=== PATIENT | male | born 1935 | race Caucasian/White ===

== ENCOUNTER 2016-08-17 11:12 | Inpatient (IN) | payer MEDICARE, MEDICAID ==
[~2016-08-17] VITALS: Ht 162.6 cm; Wt 74.9 kg
[~2016-08-17 11:12] MED LIST: ACULAR; TERAZOSIN HCL; [UNRECOGNIZED DRUG - OTHER]; [UNRECOGNIZED DRUG - SUPPLY]; aspirin; carvedilol; enalapril; famotidine; hyzaar; levemir; lisinopril; nitroglycerin; novolog insulin; plavix; simvastatin
[2016-08-17] MEDS ORDERED: ADENOSINE 6 ML ONE (11:28)
[2016-08-17] MEDS ORDERED: ADENOSINE 6 MG INJ IV ONE (11:30)
[2016-08-17 11:35] LABS: ADD SCAN DIFF NO
[2016-08-17 11:43] LABS: BASOPHIL # 0.1 10^3/ul (0.0-0.1); BASOPHILS % 0.6 % (0.0-2.0); EOSINOPHILS # 0.1 10^3/ul (0.0-0.5); EOSINOPHILS % 1.4 % (0.0-7.0); HEMATOCRIT 39.5 % (42.0-52.0); LYMPHOCYTES % 22.8 % (15.0-51.0); MEAN CORPUSCULAR HEMOGLOBIN 30.4 pg (29.0-33.0); MEAN CORPUSCULAR HGB CONC 32.9 g/dl (32.0-37.0); MEAN CORPUSCULAR VOLUME 92.3 fl (82.0-101.0); MEAN PLATELET VOLUME 12.2 fl (7.4-10.4); MONOCYTE # 0.7 10^3/ul (0.3-0.9); MONOCYTES % 7.7 % (0.0-11.0); NEUTROPHIL # 5.8 10^3/ul (1.6-7.5); NEUTROPHILS % 67.3 % (39.0-77.0); PLATELET COUNT 219 10^3/UL (140-415); RED BLOOD COUNT 4.28 10^6/ul (4.70-6.10); RED CELL DISTRIBUTION WIDTH 12.7 % (11.5-14.5); WHITE BLOOD COUNT 8.6 10^3/ul (4.8-10.8)
[2016-08-17 11:46] LABS: POTASSIUM 3.2 mmol/L (3.5-5.1)
[2016-08-17 11:47] LABS: INR 1.03; PROTIME 13.5 Sec (12.2-14.2); PT RATIO 1.1
[2016-08-17 11:48] LABS: PARTIAL THROMBOPLASTIN TIME 25.9 Sec (25.0-35.0)
[2016-08-17 11:49] LABS: CREATININE 1.06 mg/dl (0.61-1.24)
[2016-08-17 11:50] LABS: CALCIUM 8.1 mg/dl (8.4-10.2); MAGNESIUM 1.9 mg/dl (1.7-2.5)
[2016-08-17 12:01] LABS: TROPONIN-I 0.025 ng/ml (0.00-0.12)
[2016-08-17 12:28] LABS: THYROID STIMULATING HORMONE 2.22 MIU/L (0.465-4.680)
--- NOTE | 2016-08-17 12:28 | RADRPT ---
PROCEDURE: XR Chest 1 view. CLINICAL INDICATION: Chest pain TECHNIQUE: AP views of the chest were obtained. COMPARISON: June 09, 2009 FINDINGS: The heart is large. Calcified atherosclerosis is noted in the aorta. Left-sided dual chamber, biven tricular pacemaker/defibrillator has its leads over the heart and appears stable. The lungs are hyp oinflated. Atelectasis is noted at the right lung base. Atelectasis versus mild infiltrates are se en in the retrocardiac left lower lobe. No pneumothorax as visualized. Osseous structures are inta ct. IMPRESSION: Cardiomegaly with calcified atherosclerosis in the aorta. Hypoinflated lungs. Atelectasis versus mild infiltrates in the retrocardiac left lower lobe. Atelectasis at the right lung base. RPTAT: AA .London Riley MD, Date Time Electronically viewed and signed by .London Riley MD, on 08/17/2016 12:28 .P/
[2016-08-17] MEDS ORDERED: ACETAMINOPHEN 325 MG TAB PO PRN (12:30)
[2016-08-17] MEDS ORDERED: ONDANSETRON 4 MG INJ IV PRN (12:30)
[2016-08-17] MEDS ORDERED: OLOP2.5D5 BOTH EYES (13:31)
[2016-08-17] MEDS ORDERED: FURO40TA4 PO (13:32)
[2016-08-17] MEDS ORDERED: CARV25TA79 PO (13:32)
[2016-08-17] MEDS ORDERED: CLOP75TA27 PO (13:32)
[2016-08-17] MEDS ORDERED: LOSA1TAB19 PO (13:32)
[2016-08-17] MEDS ORDERED: SIMV40TA2 PO (13:33)
[2016-08-17] MEDS ORDERED: POTA8CAP PO (13:33)
[2016-08-17] MEDS ORDERED: FAMO20TA18 PO (13:33)
[2016-08-17] MEDS ORDERED: ERGO500037 PO (13:34)
[2016-08-17] MEDS ORDERED: MONT10TA24 PO (13:34)
[2016-08-17] MEDS ORDERED: TERA5CAP3 PO (13:34)
[2016-08-17] MEDS ORDERED: INSU100C SQ (13:35)
[2016-08-17] MEDS ORDERED: FER325 PO (13:35)
[2016-08-17] MEDS ORDERED: VILA10TA PO (13:35)
[2016-08-17] MEDS ORDERED: FOLI-49 PO (13:36)
[2016-08-17] MEDS ORDERED: CYAN500T46 PO (13:36)
[2016-08-17] MEDS ORDERED: LANT3I SC (13:36)
[2016-08-17] MEDS ORDERED: MEMA5TAB PO (13:37)
[2016-08-17] MEDS ORDERED: DONE5TAB7 PO (13:37)
--- NOTE | 2016-08-17 14:36 | ERA ---
ER Documentation Chief Complaint Date/Time DATE: 08/17/16 TIME: 14:30 Chief Complaint CHEST PAIN SINCE THIS AM SENT BY MD ALVAREZ Patient is a 80-year-old male with coronary disease, hypertension, and diabetes who presents with chest pain and shortness of breath. He had chest pressure, shortness of breath, and dizziness which started at 7 AM. He said that he has not taken his medications for the past 20 days because he ran out. He went to his primary doctor's office today Dr. Peña who sent him to the emergency department for further workup and admission. He does have a pacemaker. He has had no treatment as of yet. His symptoms are constant. ROS All systems reviewed and are negative except as per history of present illness. Medications Home Meds Reported Medications Donepezil* (Donepezil*) 5 Mg Tablet, 5 MG PO DAILY, #30 TAB 08/17/16 Memantine* (Namenda*) 5 Mg Tablet, 5 MG PO DAILY, #30 TAB 08/17/16 Cyanocobalamin* (Vitamin B12*) 500 Mcg Tab, 500 MCG PO DAILY, TAB 08/17/16 Folic Acid* (Folic Acid*) 1 Mg Tablet, 1 MG PO DAILY, TAB 08/17/16 Insulin Glargine* (Lantus*) 100 Unit/Ml Soln, 12 UNIT SC QHS, #1 VIAL 08/17/16 Insulin Lispro (Humalog) 100 Unit/1 Ml Cartridge, 4 UNIT SQ AC MEALS 08/17/16 Vilazodone Hcl (Viibryd) 10 Mg Tablet, 10 MG PO DAILY, TAB 08/17/16 Ferrous Sulfate* (Ferrous Sulfate*) 325 Mg Tabec, 325 MG PO BID, TAB 08/17/16 Ergocalciferol (Vitamin D2) (VITAMIN D2) 50,000 Unit Capsule, 95628 UNIT PO WEEKLY, CAP 08/17/16 Montelukast Sodium* (Montelukast Sodium*) 10 Mg Tablet, 10 MG PO QHS, #30 TAB 08/17/16 Terazosin Hcl* (Terazosin Hcl*) 5 Mg Capsule, 5 MG PO HS, CAP 08/17/16 Famotidine* (Famotidine*) 20 Mg Tablet, 20 MG PO DAILY, #30 TAB 08/17/16 Simvastatin* (Zocor*) 40 Mg Tablet, 40 MG PO QHS, #30 TAB 08/17/16 Potassium Chloride* (Potassium Chloride*) 8 Meq Capsule.er, 8 MEQ PO DAILY, CAP 08/17/16 Furosemide* (Furosemide*) 40 Mg Tablet, 40 MG PO DAILY, TAB 08/17/16 Clopidogrel Bisulfate (Clopidogrel) 75 Mg Tablet, 75 MG PO DAILY, #30 TAB 08/17/16 Losartan-Hydrochlorothiazide (Losartan-HCTZ) 50-12.5 Mg Tab, 1 TAB PO DAILY, TAB 08/17/16 Carvedilol* (Carvedilol*) 25 Mg Tablet, 25 MG PO BID, #60 TAB 08/17/16 Olopatadine HCl (Pazeo) 2.5 Ml Drops, 1 DROP BOTH EYES DAILY, BOTTLE 08/17/16 Discontinued Reported Medications [nitroglycerin] No Conflict Check 06/08/09 [simvastatin] No Conflict Check 06/08/09 [famotidine] No Conflict Check 06/08/09 [plavix] No Conflict Check 06/08/09 [acular] No Conflict Check 06/08/09 [contour] No Conflict Check 06/08/09 [novolog insulin] No Conflict Check 06/08/09 [levemir] No Conflict Check 06/08/09 [enalapril ] No Conflict Check 06/08/09 [hyzaar] No Conflict Check 06/08/09 [torpol ] No Conflict Check 06/08/09 [lisinopril] No Conflict Check 06/08/09 [aspirin] No Conflict Check 06/08/09 [carvedilol ] No Conflict Check 06/08/09 [Terazosin Hcl] 1 MG CAP No Conflict Check 06/08/09 Allergies Allergies: Coded Allergies: No Known Allergies (Verified Allergy, Mild, 06/08/09) PMhx/Soc History of Surgery: No Hx Neurological Disorder: No Hx Respiratory Disorders: Yes (copd) Hx Cardiac Disorders: Yes (pacemaker. hypertension. ) Hx Miscellaneous Medical Probl: No Hx Alcohol Use: Yes (moderate) Hx Substance Use: No Hx Tobacco Use: Yes (moderate) Smoking Status: Current every day smoker FmHx Family History: No diabetes Physical Exam Vitals Vital Signs Date Time Temp Pulse Resp B/P Pulse Ox O2 Delivery O2 Flow Rate FiO2 08/17/16 11:49 Nasal Cannula 2 08/17/16 11:16 98.0 171 18 85/53 97 Physical Exam Const: No acute distress Head: Atraumatic Eyes: Normal Conjunctiva ENT: Normal External Ears, Nose and Mouth. Neck: Full range of motion..~ No meningismus. Resp: Clear to auscultation bilaterally Cardio: Tachycardic rate without murmur Abd: Soft, non tender, non distended. Normal bowel sounds Skin: Pale Back: No midline or flank tenderness Ext: No cyanosis, or edema Neur: Awake and alert Psych: Normal Mood and Affect Result Diagram: 08/17/16 1112 08/17/16 1112 Results 24 hrs Laboratory Tests Test 08/17/16 11:12 White Blood Count 8.610^3/ul Red Blood Count 4.2810^6/ul Hemoglobin 13.0g/dl Hematocrit 39.5% Mean Corpuscular Volume 92.3fl Mean Corpuscular Hemoglobin 30.4pg Mean Corpuscular Hemoglobin Concent 32.9g/dl Red Cell Distribution Width 12.7% Platelet Count 83845^3/UL Mean Platelet Volume 12.2fl Neutrophils % 67.3% Lymphocytes % 22.8% Monocytes % 7.7% Eosinophils % 1.4% Basophils % 0.6% Nucleated Red Blood Cells % 0.0/100WBC Neutrophils # 5.810^3/ul Lymphocytes # 2.010^3/ul Monocytes # 0.710^3/ul Eosinophils # 0.110^3/ul Basophils # 0.110^3/ul Nucleated Red Blood Cells # 0.010^3/ul Prothrombin Time 13.5Sec Prothrombin Time Ratio 1.1 INR International Normalized Ratio 1.03 Activated Partial Thromboplast Time 25.9Sec Sodium Level 140mmol/L Potassium Level 3.2mmol/L Chloride Level 104mmol/L Carbon Dioxide Level 23mmol/L Anion Gap 16 Blood Urea Nitrogen 19mg/dl Creatinine 1.06mg/dl Glucose Level 204mg/dl Calcium Level 8.1mg/dl Magnesium Level 1.9mg/dl Troponin I 0.025ng/ml Thyroid Stimulating Hormone (TSH) 2.220MIU/L Free Thyroxine 1.27ng/dl Current Medications Medications (Trade) Dose Ordered Sig/Mayito Route PRN Reason Start Time Stop Time Status Last Admin Dose Admin Adenosine (Adenosine) 6 mg ONCE ONCE IV 08/17/16 11:30 08/17/16 11:31 DC 08/17/16 11:52 Ondansetron HCl (Zofran Inj) 4 mg ER BRIDGE PRN IV NAUSEA AND/OR VOMITING 08/17/16 12:30 08/18/16 12:29 Acetaminophen (Tylenol Tab) 650 mg ER BRIDGE PRN PO MILD PAIN/FEVER 08/17/16 12:30 08/18/16 12:29 Procedures/MDM EKG #1 read by me: Rate/Rhythm: Tachycardia with wide complex at a rate of 167 Intervals: Prolonged QRS of 160 and prolonged QTC of 543 Impression: Wide complex tachycardia EKG #2 read by me: Rate/Rhythm: Paced rhythm with PVCs at a rate of 114 Intervals: Prolonged QRS with a paced rhythm and prolonged QTC of 576 Impression: Paced rhythm with PVCs and prolonged QTC PROCEDURE: XR Chest 1 view. CLINICAL INDICATION: Chest pain TECHNIQUE: AP views of the chest were obtained. COMPARISON: June 09, 2009 FINDINGS: The heart is large. Calcified atherosclerosis is noted in the aorta. Left- sided dual chamber, biventricular pacemaker/defibrillator has its leads over the heart and appears stable. The lungs are hypoinflated. Atelectasis is noted at the right lung base. Atelectasis versus mild infiltrates are seen in the retrocardiac left lower lobe. No pneumothorax as visualized. Osseous structures are intact. IMPRESSION: Cardiomegaly with calcified atherosclerosis in the aorta. Hypoinflated lungs. Atelectasis versus mild infiltrates in the retrocardiac left lower lobe. Atelectasis at the right lung base. RPTAT: AA .London Riley MD, MD Date Time Electronically viewed and signed by .London Riley MD, on 08/17/2016 12:28 Patient is a 80-year-old male with coronary disease, hypertension, and diabetes who presents with a wide-complex tachycardia. He was hypotensive as well. Pacer pads were applied as this was potentially ventricular tachycardia. However the patient was noted to have a pacemaker in the left chest wall and the EKG was potentially showing SVT with a left bundle branch block which can mimic ventricular tachycardia. Therefore 6 mg of adenosine was attempted and was successfully able to convert SVT. The patient now has a paced rhythm with negative Sgarbossa criteria. I spoke with Dr. Peña who will admit the patient to a telemetry bed. The patient has anemia but does not require transfusion at this point. The patient had mild hypokalemia and was given potassium by mouth. Critical Care: Time: 35 minutes excluding all billable procedures. Treatments/Evaluations: Close monitoring and treatment of unstable vital signs, cardiorespiratory, and neurologic status, while maintaining tight balance of fluid, respiratory, and cardiac interventions. Departure Diagnosis: Primary Impression: Hypokalemia Additional Impressions: SVT (supraventricular tachycardia) Chest pain Qualified Code: R07.9 - Chest pain, unspecified type Condition: [place] Worley MD Aug 17, 2016 14:35
[2016-08-17 18:45] VITALS: TEMP 98
[2016-08-17 20:14] LABS: CK-MB 2.85 ng/ml (0.0-2.4)
[2016-08-17 20:16] LABS: TROPONIN-I 0.375 ng/ml (0.00-0.12)
--- NOTE | 2016-08-17 20:21 | HP ---
Date/Time of Note Date/Time of Note DATE: 08/17/16 TIME: 20:09 Assessment/Plan VTE Prophylaxis VTE Prophylaxis Intervention: ambulation, anti-embolic stocking VTE Contraindication Reason: peripheral vascular disease Lines/Catheters IV [facility] Saline Lock Central line still needed: No Urinary Cath still in place: No Reason Cath still needed: urinary retention Assessment/Plan Assessment/Plan 1. SVT with control of rate after adenosine. 2. Chronic obstructive pulmonary disease. Respiratory therapy was started. Keep the Proventil. Oxygen was given. The hydration 250/50 will be given. 3. Osteoarthritis in multiple joints. 4. Dyslipidemia. Zocor 40 continue. 5. Benign prostatic hypertrophy. Hytrin 5 mg at bedtime. 6. Peptic ulcer disease. Protonix 40 daily was given. 7. Anemia of chronic disease 8. Diabetes mellitus, type II, managed by Novolog insulin sliding scale #1. 9.Ischemic heart disease, acute myocardial infarction. Cardiology consult was requested. We will follow with acute myocardial infarction protocol. In 2009 DAVID ARRIAGA MD performed angiography CINE VENTRICULOGRAPHY: There is a dilated left ventricle with global severe hypokinesis, inferior akinesis, and estimated ejection fraction of 20%. Significant dilatation of the ascending aorta is visible to a maximum luminal diameter of 5.1 cm. CONCLUSION This is a 73-year-old male patient who presented with shortness of breath and troponin elevation. He underwent a positive stress test. He was found to have diffuse arteriosclerotic changes with multiple stenotic lesions up to 50% of his left coronary tree. The left coronary tree provides collaterals to the right coronary artery. The right coronary artery reveals a distal 90% to 95% lesion which represents a functional, chronic, total occlusion. This is preceding by significant tortuosity. Attempts to revascularize the RCA were aborted due to significant tortuosity, the avoidance of complications, the presence of a chronic total occlusion, and aneurysmatic dilatation of the ascending aorta. Cine ventriculography revealed severe left ventricular dysfunction, likely partially ischemic, predominantly nonischemic. There is significant dilatation of the ascending aorta which represents an aneurysm of the ascending aorta to a maximum luminal diameter of 5.1 cm. The patient will be introduced to Cardiothoracic Surgery for consideration of revascularization and repair of the aorta. This will be also discussed with his family, who is currently not present. 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 15.Incomplete data. Most of information from the of the patient. HPI/ROS Admit Date/Time Admit Date/Time Severe sob worse last 4 days. The pt.with coronary disease, hypertension, and diabetes who presents with chest pain and shortness of breath. He had chest pressure, shortness of breath, and dizziness which started at 7 AM. He said that he run out his medications for the past 30 days.. I sent him to the emergency department for further workup and admission after detecting very high heart rate with palenes and decreased bp with dizziness and confusion. ROS Subjective hx not possible: pt critical status Constitutional: diaphoresis, disoriented, fatigue, improved, nausea, poor po, weight change, No chills, No febrile, No no complaints, No other Eyes: visual change, No discharge, No no complaints, No other, No pain, No redness ENT: congestion, sore throat, No bleeding, No discharge, No dysphagia, No no complaints, No other, No pain Respiratory: cough, shortness of breath, sputum, No no complaints, No other, No pain, No pleuritic pain, No wheezing Cardiovascular: chest pain, edema, lightheadedness, orthopenea, palpitations, paroxysmal nocturnal dyspnea, No no complaints, No other Gastrointestinal: constipation, flatus, pain, passing stool, No blood, No decreased appetite, No diarrhea, No nausea, No no complaints, No other, No vomiting Genitourinary: dysuria, flank pain, No bleeding, No discharge, No hematuria, No no complaints, No other Musculoskeletal: back pain, bone/joint pain, neck pain, No no complaints, No other, No restricted range of motion, No swelling Skin: other (excessive perspiration with pale face and acrocyanosis.), pruritis, rash, No bruising, No erythema, No laceration, No no complaints, No skin lesions Neurologic: confusion, dizziness, headache, No focal-weakness, No no complaints, No other, No seizure, No syncope Endocrine: polydypsia, temp intolerance, weight change (lost 2 lb last 10 days.), No dry skin, No no complaints, No other, No polyuria Psychological: anxiety, confusion, depression, No nl mood/affect, No no complaints, No other, No suicidal Immunologic: No immunodeficiency, No no complaints, No other, No pruritis, No rhinitis, No urticaria PMH/Family/Social Past Medical History Medical History: angina, colitis, congestive heart failure, coronary artery disease, deep vein thrombosis, diabetes, GERD, GI bleed, high cholesterol, hypertension, hyperthyroid, irritable bowel syndrome, renal disease, urinary tract infection, other (S/P multiple episodes of syncope with total amnesia ; ventricular tachicardia and cardiac arrests with sucsessful resussitation.) Past Surgical History Past Surgical Hx: angioplasty, coronary bypass surgery, endoscopy, other (S/P ICD implantation.) Family History Significant Family History: asthma, COPD, diabetes, hypertension, lung disease , vascular disease Social History Alcohol Use: other (none last 7 years.) Smoking Status: Current every day smoker Drug Use: none Exam/Review of Systems Vital Signs Vitals Vital Signs Date Time Temp Pulse Resp B/P Pulse Ox O2 Delivery O2 Flow Rate FiO2 08/17/16 17:45 98.0 101 18 112/68 97 08/17/16 11:49 Nasal Cannula 2 Exam Constitutional: alert, distress, frail, No non-verbal, No oriented, No other, No well developed Psych: anxiety, confusion, depression, No nl mood/affect, No no complaints, No other, No suicidal Head: atraumatic, No hematomas, No lacerations, No normocephalic, No other Eyes: EOMI, PERRL (s/p cataractectomy bilatrally.), nl lids ENMT: nl lips & teeth (dentures.), tympanic membranes, No intubated, No mucosa pink and moist, No nl external ears & nose, No nl nasal mucosa & septum, No other Neck: bruits, jvd, supple, thyromegaly, No masses, No non-tender, No nuchal rigidity, No other Respiratory: congested cough, diminished breath sounds, labored breathing, normal air movement, No clear to auscultation, No crackles/rales, No intercostal retraction, No other, No respirations, No tactile fremitus, No wheezing Cardiovascular: bruits, edema, irregular rhythm, other (palpable body of ICD in subclavian area.), systolic murmur, No S3, No S4, No diastolic murmur, No gallop, No jugular venous distention ( JVD), No murmurs/extra sounds, No nl pulses, No regular rate and rhythm, No rub Gastrointestinal: bowel sounds, distended, nl liver, spleen, non-tender, surgical scars Genitourinary - Male: nl penis, nl scrotum, No CVA tenderness, No discharge, No other Musculoskeletal: joint tenderness, muscle tone, muscle weakness, No nl extremities to inspection, No nl gait and stance, No other, No range of motion, No spine non-tender, No swelling Extremities: calf tenderness Neurological: GRIEF COUNSELLOR II-XII intact, confused, nl speech (changed. Slow, poor comprahension with poor concentration.), No DTR's symmetric, No focal weakness, No lethargic, No nl mental status, No nl strength, No numbness, No other, No reflexes, No unresponsive Skin: diaphoresis, rash or lesions, No ecchymosis, No laceration, No nl turgor, No other, No puncture Labs Result Diagram: 08/17/16 1112 08/17/16 1112 WEN GOLDMAN MD Aug 17, 2016 20:20
[2016-08-17] MEDS: ALBUTEROL 0.083% (NEB) 2.5 MG/3 ML AMP HHN SCH (21:00)
[2016-08-17] MEDS ORDERED: NITROGLYCERIN AEROSOL (4.9 GM) SL ONE (21:00)
[2016-08-17] MEDS: TERAZOSIN 5 MG CAP PO SCH (21:00)
[2016-08-17] MEDS ORDERED: NON-FORMULARY/PATIENT OWN MED (Simvastatin* (Zocor*) 40 MG) PO SCH (21:00)
[2016-08-17 22:48] VITALS: PULSE 92
[2016-08-17 22:49] VITALS: PULSE 96
[2016-08-17] MEDS: FERROUS SULFATE (EC) 325 MG TAB PO SCH (23:33)
[2016-08-17] MEDS: ATORVASTATIN 20 MG TAB PO SCH (23:34)
[2016-08-17] MEDS: FAMOTIDINE 20 MG TAB PO SCH (23:34)
[2016-08-17] MEDS: CLOPIDOGREL 75 MG TAB PO SCH (23:34)
[2016-08-17] MEDS: SALMETEROL/FLUTICASONE 250/50 INHA INH SCH (23:34)
[2016-08-17] MEDS: DONEPEZIL 5 MG TAB PO SCH (23:34)
[2016-08-17] MEDS: MONTELUKAST 10 MG TAB PO SCH (23:36)
[2016-08-17] MEDS: INSULIN GLARGINE [LANtus] 3 ML PEN SC SCH (23:37)
[2016-08-17] MEDS: ENOXAPARIN 100 MG/ML SYG SC SCH (23:38)
[2016-08-17] MEDS: FUROSEMIDE 40 MG TAB PO SCH (23:43)
[2016-08-18] VITALS (14 sets, daily range): BP systolic 126–156; BP diastolic 59–72; PULSE 65–92; RESP 17–20; Ht 162.6 cm; Wt 74.9 kg
[2016-08-18] MEDS: MAGNESIUM SULFATE 2 GM/50 ML 50 ML IVPB SCH ×2 (00:48→10:48)
[2016-08-18 00:55] LABS: CK-MB 2.75 ng/ml (0.0-2.4); TROPONIN-I 0.459 ng/ml (0.00-0.12)
[2016-08-18] MEDS: ALBUTEROL 0.083% (NEB) 2.5 MG/3 ML AMP HHN SCH ×4 (02:15→20:00)
[2016-08-18] MEDS: FUROSEMIDE 40 MG TAB PO SCH (05:37)
[2016-08-18] MEDS: INSULIN ASPART [NOVOLOG] 3 ML PEN SC SCH ×3 (07:30→18:07)
[2016-08-18] MEDS ORDERED: DEXTROSE 50% 50 ML SYRINGE IV PRN ×2 (08:00)
[2016-08-18] MEDS ORDERED: GLUCOSE GEL 15 GRAM TUBE BUCCAL PRN (08:00)
[2016-08-18] MEDS ORDERED: GLUCAGON 1 MG INJ IM PRN (08:00)
[2016-08-18] MEDS: IPRATROPIUM (NEB) 0.5 MG/2.5 ML AMP HHN SCH ×3 (08:00→14:56)
[2016-08-18] MEDS ORDERED: GLUCOSE GEL 15 GRAM TUBE PO PRN ×2 (08:00)
[2016-08-18] MEDS ORDERED: VILAZODONE HCL 10 MG PO SCH (09:00)
[2016-08-18] MEDS ORDERED: NON-FORMULARY/PATIENT OWN MED (Losartan-Hydrochlorothiazide (Losartan-HCTZ) 1 TAB) PO SCH (09:00)
[2016-08-18] MEDS ORDERED: OLOPATADINE HCL BOTH EYES SCH (09:00)
[2016-08-18 09:47] LABS: ADD SCAN DIFF NO
[2016-08-18 09:49] LABS: BASOPHIL # 0.1 10^3/ul (0.0-0.1); BASOPHILS % 0.9 % (0.0-2.0); EOSINOPHILS # 0.2 10^3/ul (0.0-0.5); EOSINOPHILS % 3.6 % (0.0-7.0); HEMATOCRIT 41.5 % (42.0-52.0); HEMOGLOBIN 13.3 g/dl (14.0-18.0); LYMPHOCYTES # 1.9 10^3/ul (0.8-2.9); LYMPHOCYTES % 32.2 % (15.0-51.0); MEAN CORPUSCULAR HEMOGLOBIN 29.8 pg (29.0-33.0); MEAN CORPUSCULAR VOLUME 92.8 fl (82.0-101.0); MEAN PLATELET VOLUME 11.9 fl (7.4-10.4); MONOCYTE # 0.6 10^3/ul (0.3-0.9); MONOCYTES % 10.6 % (0.0-11.0); NEUTROPHIL # 3.1 10^3/ul (1.6-7.5); NEUTROPHILS % 52.4 % (39.0-77.0); PLATELET COUNT 206 10^3/UL (140-415); RED BLOOD COUNT 4.47 10^6/ul (4.70-6.10); RED CELL DISTRIBUTION WIDTH 12.7 % (11.5-14.5); WHITE BLOOD COUNT 5.9 10^3/ul (4.8-10.8)
[2016-08-18 10:08] LABS: ALBUMIN 3.9 g/dl (3.3-4.9); POTASSIUM 3.6 mmol/L (3.5-5.1)
[2016-08-18 10:10] LABS: BILIRUBIN,INDIRECT 0.5 mg/dl (0-1.1); BILIRUBIN,TOTAL 0.5 mg/dl (0.2-1.3); CREATININE 1.08 mg/dl (0.61-1.24)
[2016-08-18 10:11] LABS: ALBUMIN/GLOBULIN RATIO 1.14; CALCIUM 8.4 mg/dl (8.4-10.2); TOTAL PROTEIN 7.3 g/dl (6.1-8.1)
[2016-08-18] MEDS: FERROUS SULFATE (EC) 325 MG TAB PO SCH ×2 (10:49→22:05)
[2016-08-18] MEDS: DONEPEZIL 5 MG TAB PO SCH (10:49)
[2016-08-18] MEDS: POTASSIUM CHLORIDE (SR) 8 MEQ CAP PO SCH (10:49)
[2016-08-18] MEDS: FOLIC ACID 1 MG TAB PO SCH (10:50)
[2016-08-18] MEDS: FAMOTIDINE 20 MG TAB PO SCH (10:50)
[2016-08-18] MEDS: CYANOCOBALAMIN 500 MCG TAB PO SCH ×2 (10:50→22:06)
[2016-08-18] MEDS: HYDROCHLOROTHIAZIDE 12.5 MG CAP PO SCH (10:50)
[2016-08-18] MEDS: LOSARTAN 50 MG TAB PO SCH (10:51)
[2016-08-18] MEDS: CLOPIDOGREL 75 MG TAB PO SCH (10:51)
[2016-08-18] MEDS: MEMANTINE 5 MG TAB PO SCH (10:51)
[2016-08-18] MEDS: SALMETEROL/FLUTICASONE 250/50 INHA INH SCH ×2 (10:53→22:05)
[2016-08-18] MEDS: ENOXAPARIN 100 MG/ML SYG SC SCH ×2 (10:57→22:08)
--- NOTE | 2016-08-18 16:04 | CONS ---
DATE OF ADMISSION: 08/17/2016 DATE OF CONSULTATION: 08/18/2016 TYPE OF CONSULTATION: Pulmonary. PRIMARY PHYSICIAN: Dr. Goldman HISTORY OF PRESENT ILLNESS: Briefly, this is a 80-year-old gentleman with a history of diabetes, hy pertension, and coronary artery disease, who presented yesterday with some substernal chest pain and was thought to be in SVT, status post adenosine x1 in the emergency department, with evidence of a mild troponin bump. Per records, it appears that he is being treated for possible COPD, although th e details are not entirely clear. He denies any shortness of breath or cough. At present he is amb ulating without any difficulty. PAST MEDICAL HISTORY: In addition to what is noted above, there is a history of anemia, peptic ulce r disease, BPH, hyperlipidemia, and osteoarthritis. MEDICATIONS: Please see MAR. ALLERGIES: NONE. PAST SURGICAL HISTORY: History of angioplasty, CABG, endoscopy, status post ICD implantation. REVIEW OF SYSTEMS: As noted in the HPI. FAMILY HISTORY: Noncontributory. SOCIAL HISTORY: No tobacco, alcohol or illicit drug use. PHYSICAL EXAMINATION: VITAL SIGNS: Heart rate is 72, blood pressure 151/69, oxygen saturation is 97% on room air. HEENT: Normocephalic, atraumatic. NECK: Supple. No thyromegaly, no jugular venous distention. CARDIOVASCULAR EXAM: Regular rate and rhythm. S1, S2. No murmurs, rubs, or gallops. LUNGS: Clear to auscultation bilaterally. ABDOMEN: Soft, nontender. No hepatosplenomegaly. EXTREMITIES: No cyanosis, clubbing or edema. LABORATORY DATA: Troponin peaked at 0.50, BUN is 25, creatinine is 1.08. WBC is 5.8, hemoglobin 13 .3. Chest x-ray shows cardiomegaly with low lung volumes and no obvious evidence of pulmonary edema . IMPRESSION: 1. Possible ACS in a patient with known coronary artery disease. Following serum troponins, with c ardiology evaluation to follow. 2. History of chronic obstructive pulmonary disease; however, it does not appear to be active, with no evidence of exacerbations. 3. History of coronary artery disease. 4. Hyperlipidemia. 5. Diabetes. Currently appears to be poorly controlled. RECOMMENDATIONS: 1. Continue outpatient bronchodilators, including long-acting beta agonist, inhaled glucocorticoid and p.r.n. Albuterol. 2. There is no indication to treat for COPD exacerbation. 3. Will await cardiology evaluation prior to disposition home. Dictated By: YULIANA WINCHESTER MD NK/NTS Conf#: [id number] DID#: [id number] CC: WEN GOLDMAN MD;*EndCC*
[2016-08-18] MEDS: MONTELUKAST 10 MG TAB PO SCH (21:00)
--- NOTE | 2016-08-18 21:04 | PN ---
Date/Time of Note Date/Time of Note DATE: 08/18/16 TIME: 20:53 Assessment/Plan VTE Prophylaxis VTE Prophylaxis Intervention: ambulation, anti-embolic stocking VTE Contraindication Reason: peripheral vascular disease Lines/Catheters IV Catheter Type (from [facility] [place] [employer] line still needed: No Urinary Cath still in place: No Reason Cath still needed: urinary retention Assessment/Plan Assessment/Plan 1. SVT with control of rate after adenosine. 2. Chronic obstructive pulmonary disease. Respiratory therapy was started. Keep the Proventil. Oxygen was given. The hydration 250/50 will be given. 3. Osteoarthritis in multiple joints. 4. Dyslipidemia. Zocor 40 continue. 5. Benign prostatic hypertrophy. Hytrin 5 mg at bedtime. 6. Peptic ulcer disease. Protonix 40 daily was given. 7. Anemia of chronic disease 8. Diabetes mellitus, type II, managed by Novolog insulin sliding scale #1. 9.Ischemic heart disease, acute myocardial infarction. Cardiology consult was requested. We will follow with acute myocardial infarction protocol. In 2009 DAVID ARRIAGA MD performed angiography CINE VENTRICULOGRAPHY: There is a dilated left ventricle with global severe hypokinesis, inferior akinesis, and estimated ejection fraction of 20%. Significant dilatation of the ascending aorta is visible to a maximum luminal diameter of 5.1 ; He underwent a positive stress test. He was found to have diffuse arteriosclerotic changes with multiple stenotic lesions up to 50% of his left coronary tree. The left coronary tree provides collaterals to the right coronary artery. The right coronary artery reveals a distal 90% to 95% lesion which represents a functional, chronic, total occlusion. This is preceding by significant tortuosity. Attempts to revascularize the RCA were aborted due to significant tortuosity, the avoidance of complications, the presence of a chronic total occlusion, and aneurysmatic dilatation of the ascending aorta. Cine ventriculography revealed severe left ventricular dysfunction, likely partially ischemic, predominantly nonischemic. There is significant dilatation of the ascending aorta which represents an aneurysm of the cm. The patient will be introduced to Cardiothoracic Surgery for consideration of revascularization and repair of the aorta. This will be also discussed with his family, who is currently not present. 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 15.Incomplete data. Most of information from the of the patient. 16.ascending aortic aneurism; to a maximum luminal diameter of 5.1cm 2009; Discussed with the patient. Sabrinasn't want toa talk ablor the surgery. He feels better No new tests please for now. Cont'd Hospitalization Reason: plan d/c in am. Subjective 24 Hr Interval Summary Free Text/Dictation I feel better.Dry mouth . When I get up up am dizzy. Subjective hx not possible: other (improved.) Constitutional: diaphoresis, disoriented, improved, poor po, requiring IVF, requiring O2, No chills, No febrile, No no complaints, No other Eyes: pain, redness, No discharge, No no complaints, No other, No visual change ENT: congestion, dysphagia, No bleeding, No discharge, No no complaints, No other, No pain, No sore throat Respiratory: cough, pain, shortness of breath, No no complaints, No other, No pleuritic pain, No sputum, No wheezing Cardiovascular: chest pain, edema, lightheadedness, orthopenea, palpitations, paroxysmal nocturnal dyspnea, No no complaints, No other Gastrointestinal: constipation, No blood, No decreased appetite, No diarrhea, No flatus, No nausea, No no complaints, No other, No pain, No passing stool, No vomiting Genitourinary: discharge, flank pain, No bleeding, No dysuria, No hematuria, No no complaints, No other Musculoskeletal: back pain, bone/joint pain, neck pain, restricted range of motion, No no complaints, No other, No swelling Neurologic: confusion, dizziness, headache, No focal-weakness, No no complaints, No other, No seizure, No syncope Psychological: anxiety, confusion, depression, No nl mood/affect, No no complaints, No other, No suicidal Exam/Review of Systems Vital Signs Vitals Vital Signs Date Time Temp Pulse Resp B/P Pulse Ox O2 Delivery O2 Flow Rate FiO2 08/18/16 20:17 87 08/18/16 19:47 98.2 20 142/62 95 08/18/16 02:24 21 08/17/16 21:11 Room Air 08/17/16 11:49 2 Intake and Output 08/17/16 08/17/16 08/18/16 15:00 23:00 07:00 Intake Total 1050 ml Balance 1050 ml Exam Constitutional: alert, distress, frail, well developed Psych: anxiety, confusion, depression, No nl mood/affect, No no complaints, No other, No suicidal Head: atraumatic, No hematomas, No lacerations, No normocephalic, No other Eyes: EOMI, PERRL, nl lids, No fundi, disc, No icteric, No nl conjunctiva, No nl sclera, No other ENMT: No intubated, No mucosa pink and moist, No nl external ears & nose, No nl lips & teeth, No nl nasal mucosa & septum, No other, No tympanic membranes Neck: bruits, jvd, nuchal rigidity, No masses, No non-tender, No other, No supple, No thyromegaly Respiratory: congested cough, diminished breath sounds, tactile fremitus, No clear to auscultation, No crackles/rales, No intercostal retraction, No labored breathing, No normal air movement, No other, No respirations, No wheezing Cardiovascular: bruits, edema, jugular venous distention (JVD), systolic murmur , No S3, No S4, No diastolic murmur, No gallop, No irregular rhythm, No murmurs /extra sounds, No nl pulses, No other, No regular rate and rhythm, No rub Gastrointestinal: bowel sounds, distended, nl liver, spleen Genitourinary - Male: CVA tenderness, nl penis, nl scrotum, No discharge, No other Musculoskeletal: joint tenderness, muscle tone, muscle weakness, No nl extremities to inspection, No nl gait and stance, No other, No range of motion, No spine non-tender, No swelling Neurological: [employer] II-XII intact, confused, lethargic, nl speech, numbness, No DTR's symmetric, No focal weakness, No nl mental status, No nl strength, No other, No reflexes, No unresponsive Skin: ecchymosis, No diaphoresis, No laceration, No nl turgor, No other, No puncture, No rash or lesions Results Result Diagram: 08/18/16 0930 08/18/16 0930 Results 24 hrs Laboratory Tests Test 08/17/16 22:26 08/17/16 23:35 08/18/16 08:30 08/18/16 09:30 Bedside Glucose 324 H 148 Creatine Kinase 76 Creatine Kinase Index 3.6 Creatinine Kinase MB (Mass) 2.75 H Troponin I 0.459 *H White Blood Count 5.9 # Red Blood Count 4.47 L Hemoglobin 13.3 L Hematocrit 41.5 L Mean Corpuscular Volume 92.8 Mean Corpuscular Hemoglobin 29.8 Mean Corpuscular Hemoglobin Concent 32.0 Red Cell Distribution Width 12.7 Platelet Count 206 Mean Platelet Volume 11.9 H Neutrophils % 52.4 Lymphocytes % 32.2 Monocytes % 10.6 Eosinophils % 3.6 Basophils % 0.9 Nucleated Red Blood Cells % 0.0 Neutrophils # 3.1 Lymphocytes # 1.9 Monocytes # 0.6 Eosinophils # 0.2 Basophils # 0.1 Nucleated Red Blood Cells # 0.0 Sodium Level 145 H Potassium Level 3.6 Chloride Level 101 Carbon Dioxide Level 31 Anion Gap 17 H Blood Urea Nitrogen 25 H Creatinine 1.08 Glucose Level 207 Calcium Level 8.4 Total Bilirubin 0.5 Direct Bilirubin 0.00 Indirect Bilirubin 0.5 Aspartate Amino Transf (AST/SGOT) 21 Alanine Aminotransferase (ALT/SGPT) 18 Alkaline Phosphatase 74 B-Type Natriuretic Peptide 4970 H Total Protein 7.3 Albumin 3.9 Globulin 3.40 H Albumin/Globulin Ratio 1.14 Test 08/18/16 12:40 08/18/16 17:51 08/18/16 20:43 Bedside Glucose 356 H 199 319 H Medications Medications Current Medications Carvedilol (Coreg) 25 mg BID PO Last administered on 08/18/16 10:52; Admin Dose 25 MG; Start 08/17/16 at 21:00 Clopidogrel Bisulfate (plaVIX) 75 mg DAILY PO Last administered on 08/18/16 10 :51; Admin Dose 75 MG; Start 08/17/16 at 21:00 Cyanocobalamin (Vitamin B12) 500 mcg DAILY PO Last administered on 08/18/16 10 :50; Admin Dose 500 MCG; Start 08/18/16 at 09:00 Donepezil HCl (Aricept) 5 mg DAILY PO Last administered on 08/18/16 10:49; Admin Dose 5 MG; Start 08/17/16 at 21:00 Famotidine (Pepcid) 20 mg DAILY PO Last administered on 08/18/16 10:50; Admin Dose 20 MG; Start 08/17/16 at 21:00 Ferrous Sulfate (Ferrous Sulfate (Ec)) 325 mg BID PO Last administered on 10:49; Admin Dose 325 MG; Start 08/17/16 at 21:00 Folic Acid (Folic Acid) 1 mg DAILY PO Last administered on 08/18/16 10:50; Admin Dose 1 MG; Start 08/18/16 at 09:00 Furosemide (Lasix) 40 mg DAILY@06 PO Last administered on 08/18/16 05:37; Admin Dose 40 MG; Start 08/17/16 at 21:00 Insulin Glargine (Lantus) 12 unit QHS SC Last administered on 08/17/16 23:37; Admin Dose 12 UNIT; Start 08/17/16 at 21:00 Memantine (Namenda) 5 mg DAILY PO Last administered on 08/18/16 10:51; Admin Dose 5 MG; Start 08/18/16 at 09:00 Montelukast Sodium (Singulair) 10 mg QHS PO Last administered on 08/17/16 23: 36; Admin Dose 10 MG; Start 08/17/16 at 21:00 Potassium Chloride (Micro-K) 8 meq DAILY PO Last administered on 08/18/16 10: 49; Admin Dose 8 MEQ; Start 08/18/16 at 09:00 Terazosin HCl (Hytrin) 5 mg HS PO ; Start 08/17/16 at 21:00 Miscellaneous Information 1 drop DAILY BOTH EYES ; Start 08/18/16 at 09:00; Status UNV Miscellaneous Information 10 mg 10 mg DAILY PO ; Start 08/18/16 at 09:00; Status UNV Magnesium Sulfate (Magnesium Sulfate 2 Gm/50 ml) 50 ml @ 25 mls/hr DAILY IVPB Last administered on 08/18/16 10:48; Admin Dose 25 MLS/HR; Start 08/17/16 at 22 :00; Stop 08/19/16 at 09:00 Enoxaparin Sodium (Lovenox) 40 mg Q12 SC Last administered on 08/18/16 10:57; Admin Dose 40 MG; Start 08/17/16 at 21:00 Salmeterol Xinafoate/ Fluticasone (Advair 250/50 Diskus) 1 inh Q12 INH Last administered on 08/18/16 10:53; Admin Dose 1 INH; Start 08/17/16 at 21:00 Atorvastatin Calcium (Lipitor) 20 mg DAILY@21 PO Last administered on 23:34; Admin Dose 20 MG; Start 08/17/16 at 21:00 Losartan Potassium (Cozaar) 50 mg DAILY PO Last administered on 08/18/16 10:51 ; Admin Dose 50 MG; Start 08/18/16 at 09:00 Hydrochlorothiazide (Hydrochlorothiazide) 12.5 mg DAILY PO Last administered on 08/18/16 10:50; Admin Dose 12.5 MG; Start 08/18/16 at 09:00 Miscellaneous Information 1 ea NOTE XX ; Start 08/18/16 at 08:00 Glucose (Glutose) 15 gm Q15M PRN PO DECREASED GLUCOSE; Start 08/18/16 at 08:00 Glucose (Glutose) 22.5 gm Q15M PRN PO DECREASED GLUCOSE; Start 08/18/16 at 08: 00 Dextrose (D50w Syringe) 25 ml Q15M PRN IV DECREASED GLUCOSE; Start 08/18/16 at 08:00 Dextrose (D50w Syringe) 50 ml Q15M PRN IV DECREASED GLUCOSE; Start 08/18/16 at 08:00 Glucagon (Glucagen) 1 mg Q15M PRN IM DECREASED GLUCOSE; Start 08/18/16 at 08:00 Glucose (Glutose) 15 gm Q15M PRN BUCCAL DECREASED GLUCOSE; Start 08/18/16 at 08 :00 WEN GOLDMAN MD Aug 18, 2016 21:04
[2016-08-18] MEDS ORDERED: SIMV40TA2 PO (21:15)
[2016-08-18] MEDS ORDERED: FER325 PO (21:15)
[2016-08-18] MEDS ORDERED: CARV25TA79 PO (21:15)
[2016-08-18] MEDS ORDERED: INSU100C SQ (21:15)
[2016-08-18] MEDS ORDERED: LANT3I SC (21:15)
[2016-08-18] MEDS ORDERED: CLOP75TA27 PO (21:15)
[2016-08-18] MEDS ORDERED: FAMO20TA18 PO (21:15)
[2016-08-18] MEDS ORDERED: OLOP2.5D5 BOTH EYES (21:15)
[2016-08-18] MEDS ORDERED: TERA5CAP3 PO (21:15)
[2016-08-18] MEDS ORDERED: VILA10TA PO (21:15)
[2016-08-18] MEDS ORDERED: ERGO500037 PO (21:15)
[2016-08-18] MEDS ORDERED: ALBU2.5V3 HHN (21:16)
[2016-08-18] MEDS ORDERED: DONE5TAB7 PO (21:16)
[2016-08-18] MEDS ORDERED: Ipratropium 0.02% (Neb) HHN (21:16)
[2016-08-18] MEDS ORDERED: ATOR20TA65 PO (21:16)
[2016-08-18] MEDS ORDERED: ADV25050 INH (21:16)
[2016-08-18] MEDS ORDERED: MEMA5TAB PO (21:16)
[2016-08-18] MEDS ORDERED: FOLI-49 PO (21:16)
[2016-08-18] MEDS ORDERED: MONT10TA24 PO (21:16)
[2016-08-18] MEDS ORDERED: FURO40TA4 PO (21:16)
[2016-08-18] MEDS ORDERED: HYDR12.53 PO (21:16)
[2016-08-18] MEDS ORDERED: CYAN500T46 PO (21:16)
[2016-08-18] MEDS ORDERED: POTASSIUM CHLORIDE PO (21:16)
[2016-08-18] MEDS ORDERED: LOSA50TA2 PO (21:16)
[2016-08-18] MEDS: TERAZOSIN 5 MG CAP PO SCH (22:06)
[2016-08-18] MEDS: ATORVASTATIN 20 MG TAB PO SCH (22:06)
[2016-08-18] MEDS: INSULIN GLARGINE [LANtus] 3 ML PEN SC SCH (22:11)
[2016-08-19] VITALS (9 sets, daily range): BP systolic 118–134; BP diastolic 58–64; PULSE 59–121; RESP 18–20
[2016-08-19] MEDS: ALBUTEROL 0.083% (NEB) 2.5 MG/3 ML AMP HHN SCH ×2 (02:00→08:00)
[2016-08-19] MEDS: FUROSEMIDE 40 MG TAB PO SCH (06:15)
[2016-08-19] MEDS: IPRATROPIUM (NEB) 0.5 MG/2.5 ML AMP HHN SCH (08:00)
[2016-08-19] MEDS: MAGNESIUM SULFATE 2 GM/50 ML 50 ML IVPB SCH (10:15)
[2016-08-19] MEDS: SALMETEROL/FLUTICASONE 250/50 INHA INH SCH (10:18)
[2016-08-19] MEDS: HYDROCHLOROTHIAZIDE 12.5 MG CAP PO SCH (10:19)
[2016-08-19] MEDS: DONEPEZIL 5 MG TAB PO SCH (10:19)
[2016-08-19] MEDS: CYANOCOBALAMIN 500 MCG TAB PO SCH (10:19)
[2016-08-19] MEDS: FOLIC ACID 1 MG TAB PO SCH (10:20)
[2016-08-19] MEDS: LOSARTAN 50 MG TAB PO SCH (10:20)
[2016-08-19] MEDS: CLOPIDOGREL 75 MG TAB PO SCH (10:21)
[2016-08-19] MEDS: FERROUS SULFATE (EC) 325 MG TAB PO SCH (10:21)
[2016-08-19] MEDS: MEMANTINE 5 MG TAB PO SCH (10:21)
[2016-08-19] MEDS: POTASSIUM CHLORIDE (SR) 8 MEQ CAP PO SCH (10:21)
[2016-08-19] MEDS: FAMOTIDINE 20 MG TAB PO SCH (10:22)
[2016-08-19] MEDS: INSULIN ASPART [NOVOLOG] 3 ML PEN SC SCH ×2 (10:33→12:55)
[2016-08-19] MEDS: ENOXAPARIN 100 MG/ML SYG SC SCH (10:33)
--- NOTE | 2016-08-19 15:11 | CONS ---
Date/Time of Note Date/Time of Note DATE: 08/19/16 TIME: 15:10 Consult Date/Type/Reason Admit Date/Time Aug 17, 2016 at 12:25 Initial Consult Date Type of Consultation: PUlm Subjective Doing well. Being discharged at time of my visit. Objective Vital Signs Date Time Temp Pulse Resp B/P Pulse Ox O2 Delivery O2 Flow Rate FiO2 08/19/16 12:41 71 08/19/16 12:13 97.8 18 118/61 95 08/18/16 02:24 21 08/17/16 21:11 Room Air 08/17/16 11:49 2 Intake and Output 08/18/16 08/18/16 08/19/16 15:00 23:00 07:00 Intake Total 950 ml 600 ml Output Total 900 ml Balance 950 ml -300 ml Exam HEENT: Normocephalic, atraumatic. NECK: Supple. No thyromegaly, no jugular venous distention. CARDIOVASCULAR EXAM: Regular rate and rhythm. S1, S2. No murmurs, rubs, or gallops. LUNGS: Clear to auscultation bilaterally. ABDOMEN: Soft, nontender. No hepatosplenomegaly. EXTREMITIES: No cyanosis, clubbing or edema. Results/Medications Result Diagram: 08/18/16 0930 08/18/16 0930 Results 24 hrs Laboratory Tests Test 08/18/16 17:51 08/18/16 20:43 08/19/16 01:40 08/19/16 08:31 Bedside Glucose 199 319 H 170 104 Test 08/19/16 12:15 Bedside Glucose 215 Assessment/Plan Additional Assessment/Plan IMPRESSION: 1. Possible ACS in a patient with known coronary artery disease. Following serum troponins, with cardiology evaluation to follow. 2. History of chronic obstructive pulmonary disease; however, it does not appear to be active, with no evidence of exacerbations. 3. History of coronary artery disease. 4. Hyperlipidemia. 5. Diabetes. Currently appears to be poorly controlled. RECOMMENDATIONS: 1. Continue outpatient bronchodilators, including long-acting beta agonist, inhaled glucocorticoid and p.r.n. Albuterol. 2. There is no indication to treat for COPD exacerbation. 3. Stable for D/C from pulm perspective YULIANA WINCHESTER MD Aug 19, 2016 15:11
== END 2016-08-19 13:40 | disposition home health service (06) | DRG 310 ==
LOC: E/R 11:12 → MS4 12:25
PROVIDERS: ADMIT Family Medicine; ATTEND Family Medicine
DX: I47.1 Supraventricular tachycardia (principal); I25.82 Chronic total occlusion of coronary artery; I71.2 Thoracic aortic aneurysm, without rupture; E11.9 Type 2 diabetes mellitus without complications; K27.9 Peptic ulcer, site unspecified, unspecified as acute or chronic, without hemorrhage or perforation; D63.8 Anemia in other chronic diseases classified elsewhere; I25.10 Atherosclerotic heart disease of native coronary artery without angina pectoris; Z95.1 Presence of aortocoronary bypass graft; R07.89 Other chest pain; J44.9 Chronic obstructive pulmonary disease, unspecified; E78.5 Hyperlipidemia, unspecified; Z79.4 Long term (current) use of insulin; I25.9 Chronic ischemic heart disease, unspecified; Z95.810 Presence of automatic (implantable) cardiac defibrillator; F41.0 Panic disorder [episodic paroxysmal anxiety]; Z86.74 Personal history of sudden cardiac arrest; N40.1 Benign prostatic hyperplasia with lower urinary tract symptoms; R33.8 Other retention of urine; Z98.61 Coronary angioplasty status
CPT/HCPCS: 36415; 71010; 80048; 80053; 82550; 82553; 82962; 83735; 83880; 84439; 84443; 84484; 85025; 85610; 85730; 93005; 94664; 96374; J0153; J1650; J1815; J3475